=== PATIENT | female | born 1970 | race Caucasian/White ===

== ENCOUNTER 2017-07-10 14:23 | Emergency (ER) | payer SELFPAY ==
[2017-07-10 14:46] VITALS: BP 113/71
--- NOTE | 2017-07-10 15:00 | UC ---
Respiratory Complaint HPI - HPI Summary HPI Summary: 46 yo female with fever/chills/worsening wheezing and cough (productive) x 4 days no n/v no CP feels SOB on home O2 admitted 04/08 with "double pneumonia" - History of Current Complaint Chief Complaint: UCRespiratory Stated Complaint: WHEEZING,DIFFICULTY BREATHING Time Seen by Provider: 07/10/17 14:37 Hx Obtained From: Patient Onset/Duration: Sudden Onset, Lasting Days Timing: Constant Severity Initially: Mild Severity Currently: Moderate Pain Intensity: 1 Pain Scale Used: 0-10 Numeric Character: Cough: Productive Aggravating Factors: Exertion, Deep Breaths, Recumbent Position Alleviating Factors: Bronchodilator Associated Signs And Symptoms: Positive: Dyspnea, Fever, Chills, Wheezing Related History: Similar Episode/Dx as: - pneumonia/bronchitis - Allergies/Home Medications Allergies/Adverse Reactions: Allergies Allergy/AdvReac Type Severity Reaction Status Date / Time No Known Allergies Allergy Verified 07/10/17 14:31 Home Medications: Home Medications Albuterol 0.5% CONC NEB.JETT* 1 inh TID PRN 07/10/17 [History Confirmed 07/10/17] Albuterol HFA INHALER* [Ventolin HFA Inhaler*] 2 puff Q4H PRN 07/10/17 [History Confirmed 07/10/17] Budesonide/Formote 160/4.5(NF) [Symbicort 160/4.5 (NF)] 2 puff BID 07/10/17 [ History Confirmed 07/10/17] PMH/Surg Hx/FS Hx/Imm Hx Previously Healthy: Yes Respiratory History: Asthma, Bronchitis, Pneumonia - Surgical History Surgical History: Yes Surgery Procedure, Year, and Place: TUBAL LIGATION. LEFT EYE - Family History Known Family History: Positive: Hypertension, Respiratory Disease - Social History Alcohol Use: None Substance Use Type: None Smoking Status (MU): Former Smoker Length of Time of Smoking/Using Tobacco: +10 YEARS When Did the Patient Quit Smoking/Using Tobacco: MARCH 2017 - Immunization History Most Recent Influenza Vaccination: NEVER Review of Systems Constitutional: Fever, Chills Skin: Negative Eyes: Negative ENT: Negative Respiratory: Shortness Of Breath, Cough Cardiovascular: Negative Gastrointestinal: Negative Genitourinary: Negative Motor: Negative Neurovascular: Negative Musculoskeletal: Negative Neurological: Negative Psychological: Negative Is Patient Immunocompromised?: No All Other Systems Reviewed And Are Negative: Yes Physical Exam Triage Information Reviewed: Yes Appearance: Well-Appearing, No Pain Distress, Well-Nourished Vital Signs: Initial Vital Signs Temp 97.6 F 07/10/17 14:32 Pulse 89 07/10/17 14:32 Resp 20 07/10/17 14:32 BP 113/71 07/10/17 14:32 Pulse Ox 98 07/10/17 14:32 Vital Signs Reviewed: Yes Eyes: Positive: Conjunctiva Clear ENT: Positive: Hearing grossly normal. Negative: Nasal congestion, Nasal drainage, Tonsillar exudate, Trismus, Muffled/hoarse voice Neck: Positive: Supple Respiratory: Positive: No respiratory distress, No accessory muscle use, Wheezing Cardiovascular: Positive: RRR, No Murmur Musculoskeletal: Positive: ROM Intact, No Edema Neurological: Positive: Alert Psychological Exam: Normal Skin Exam: Normal UC Diagnostic Evaluation - Laboratory O2 Sat by Pulse Oximetry: 98 - not hypoxic on 2L, - Radiology Xray Interpretation: Positive (See Comments) - RML infiltrate Radiology Interpretation Completed By: Radiologist Re-Evaluation - Re-Evaluation First Eval Re-Evaluation Time: 15:35 Change: Improved - decreased wheezing Respiratory Course/Dx - Differential Dx/Diagnosis Provider Diagnoses: pneumonia. bronchospasm Discharge - Discharge Plan Condition: Stable Disposition: HOME Prescriptions: Amoxicillin/Clavulanate TAB* [Augmentin TAB 875*] 875 mg PO BID #20 tab Prednisone [Deltasone] 40 mg PO DAILY #10 tab Patient Education Materials: Bronchospasm (ED), Pneumonia (ED) Additional Instructions: see your provider in 2-5 days use your breathing meds as directed TO ER IF YOUR SYMPTOMS WORSEN
[2017-07-10] MEDS ORDERED: Albuterol 2.5 MG/3 ML NEB.SOL* (0.083%) INH ONE (15:02)
[2017-07-10] MEDS ORDERED: Ipratropium 0.5MG/2.5ML NEB* 0.5 MG/2.5 ML NEB.SOLN INH ONE (15:02)
--- NOTE | 2017-07-10 15:21 | RAD ---
INDICATION: Fever, cough and wheezing. COMPARISON: There are no prior studies available for comparison. TECHNIQUE: Dual-energy PA and lateral views of the chest were obtained. FINDINGS: The heart is within normal limits in size. Mediastinal and hilar contours appear within normal limits. There is a small infiltrate in the right middle lobe most consistent with pneumonia. No pleural effusion is seen. IMPRESSION: RIGHT MIDDLE LOBE INFILTRATE SUGGESTIVE OF PNEUMONIA.
[2017-07-10] MEDS ORDERED: Amoxicillin/Clavulanate TAB* 875 MG PO ONE (15:32)
[2017-07-10] MEDS ORDERED: predniSONE TAB* 20 MG PO ONE (15:33)
== END 2017-07-10 15:47 | disposition home or self-care (01) ==
LOC: UCCORT 14:23
DX: J18.9 Pneumonia, unspecified organism (principal); J45.909 Unspecified asthma, uncomplicated
CPT/HCPCS: 71020; 99203; A9270-GY; G0463; J7512; J7644

== ENCOUNTER 2017-11-28 16:04 | Emergency (ER) | payer MEDICARE, MEDICAID ==
[2017-11-28 16:36] VITALS: BP 103/67
--- NOTE | 2017-11-28 16:57 | UC ---
Respiratory Complaint HPI - HPI Summary HPI Summary: Known asthmatic/COPD with frequent exacerbations of asthma, using steroid pulses up to once per month. Ran out of albuterol and is using her daughters, but states that even when well she uses albuterol regularly. Exacerbations typically treated with steroid and antibiotic. Last hospitalization was about ayear ago. Does not smoke, but has smoke exposure at home. - History of Current Complaint Chief Complaint: UCRespiratory Stated Complaint: CONGESTION, WHEEZING Time Seen by Provider: 11/28/17 16:46 Hx Obtained From: Patient, Family/Prop Attendant - here with her daughter, who contributes. ?: No Onset/Duration: Gradual Onset, Lasting Days - began feeling unwell yesterday, mild sore throat, no fever. Timing: Constant Severity Initially: Moderate Severity Currently: Moderate Pain Intensity: 0 Character: Cough: Productive Alleviating Factors: Bronchodilator, Upright Position Associated Signs And Symptoms: Positive: Dyspnea, Wheezing - Risk Factors Pulmonary Embolism Risk Factors: Negative Cardiac Risk Factors: Negative Pseudomonas Risk Factors: Chronic Lung Disease Tuberculosis Risk Factors: Corticosteriod Use - Allergies/Home Medications Allergies/Adverse Reactions: Allergies Allergy/AdvReac Type Severity Reaction Status Date / Time No Known Allergies Allergy Verified 11/28/17 16:33 PMH/Surg Hx/FS Hx/Imm Hx Previously Healthy: No - disabled by COPD and back injury Respiratory History: COPD - has overnight O2, Asthma - Surgical History Surgical History: Yes Surgery Procedure, Year, and Place: TUBAL LIGATION. LEFT EYE - Family History Known Family History: Positive: Cardiac Disease - father of [place], Hypertension, Respiratory Disease, Other Family History: mother of brain tumor - Social History Occupation: Disabled Lives: With Family Alcohol Use: None Substance Use Type: None Smoking Status (MU): Former Smoker Length of Time of Smoking/Using Tobacco: +10 YEARS When Did the Patient Quit Smoking/Using Tobacco: MARCH 2017 - Immunization History Most Recent Influenza Vaccination: NEVER Review of Systems Constitutional: Fatigue Skin: Negative Eyes: Negative ENT: Sore Throat, Ear Ache Respiratory: Shortness Of Breath, Cough Cardiovascular: Negative Gastrointestinal: Negative Genitourinary: Negative Motor: Negative Neurovascular: Negative Musculoskeletal: Negative Neurological: Negative Psychological: Negative Is Patient Immunocompromised?: No All Other Systems Reviewed And Are Negative: Yes Physical Exam Triage Information Reviewed: Yes Appearance: Ill-Appearing - looks unwell, smells strongly of smoke, no respiratory distress, frequent cough, Thin Vital Signs: Initial Vital Signs Temp 98 F 11/28/17 16:31 Pulse 97 11/28/17 16:31 Resp 22 11/28/17 16:31 BP 103/67 11/28/17 16:31 Pulse Ox 97 11/28/17 16:31 Vital Signs Reviewed: Yes Eyes: Positive: Conjunctiva Clear ENT: Positive: Pharynx normal Dental Exam: Other - edentulous Neck: Positive: Supple, Nontender, No Lymphadenopathy Respiratory: Positive: Decreased breath sounds - to both bases, inspiratory and expiratory wheezes throughout., Wheezing Cardiovascular: Positive: RRR, No Murmur Abdomen Description: Positive: Nontender, No Organomegaly Neurological: Positive: Alert, Muscle Tone Normal Psychological Exam: Normal Skin Exam: Normal UC Diagnostic Evaluation - Laboratory O2 Sat by Pulse Oximetry: 97 Re-Evaluation - Re-Evaluation Second Eval Re-Evaluation Time: 17:20 - improved air entry Change: Improved Respiratory Course/Dx - Course Course Of Treatment: oral steroid, amoxicillin, albuterol renewed - Differential Dx/Diagnosis Differential Diagnosis/HQI/PQRI: Asthma, Bronchitis, Exacerbation Of COPD, Lower Resp Infection, Sinusitis Provider Diagnoses: exacerbation of COPD Discharge - Discharge Plan Condition: Stable Disposition: HOME Prescriptions: Albuterol 2.5MG/3ML (0.083%)* [Ventolin 2.5 MG/3 ML NEB.JETT*] 2.5 mg INH Q6H # 120 neb.jett Albuterol HFA INHALER* [Ventolin HFA Inhaler*] 2 puff INH Q6H PRN #1 mdi PRN Reason: Wheezing Amoxicillin PO (*) [Amoxicillin 875 MG (*)] 875 mg PO BID #20 tab predniSONE TAB* [Deltasone TAB*] 30 mg PO DAILY #33 tab Patient Education Materials: COPD (Chronic Obstructive Pulmonary Disease) (ED) Referrals: JAMESON Chauhan [Primary Care Provider] - Additional Instructions: Please schedule a follow up visit with your primary physician early next week to ensure that you are responding and to determine if you need changes in your inhalers. You have been prescribed amoxicillin as well a tapering course of prednisone. Albuterol has been renewed. Your total use of albuterol sources should not be more than 4 per day. Use oxygen at home as needed.
[2017-11-28] MEDS ORDERED: Albuterol 2.5 MG/3 ML NEB.SOL* (0.083%) INH ONE (16:58)
== END 2017-11-28 17:30 | disposition home or self-care (01) ==
LOC: UCCORT 16:04
DX: J44.1 Chronic obstructive pulmonary disease with (acute) exacerbation (principal); Z77.22 Contact with and (suspected) exposure to environmental tobacco smoke (acute) (chronic); Z87.891 Personal history of nicotine dependence
CPT/HCPCS: 99212; G0463

== ENCOUNTER 2018-07-09 09:50 | Emergency (ER) | payer MEDICARE, MEDICAID ==
[2018-07-09 10:12] VITALS: BP 128/76
[2018-07-09] MEDS ORDERED: Albuterol/Ipratropium NEB.SOL* Albuterol 2.5 MG/Ipratropium 0.5 MG 3 ML INH ONE (10:39)
--- NOTE | 2018-07-09 10:39 | UC ---
Respiratory Complaint HPI - HPI Summary HPI Summary: 47-year-old female with history of asthma and COPD presents with 3 day history of nasal congestion, nasal drainage, shortness of breath, wheezing, and a nonproductive cough. Associated with some chest tightness. She is also reporting some lower back pain after tripping over a cinder block 2 days ago. Describes pain as aching. Worsens with movement, bending, or twisting. Denies fever, chills, ear pain or drainage, sore throat, chest pain, palpitations, abdominal pain, nausea, vomiting, dysuria, frequency, urgency, hematuria, loss of bowel or bladder control, lower extremity numbness, tingling, or weakness. - History of Current Complaint Chief Complaint: UCRespiratory Stated Complaint: CONGESTION HEAD Time Seen by Provider: 07/09/18 10:03 Hx Obtained From: Patient Onset/Duration: Gradual Onset Severity Currently: Mild Pain Intensity: 3 Alleviating Factors: Bronchodilator Associated Signs And Symptoms: Positive: Dyspnea, Wheezing, URI, Nasal Congestion. Negative: Fever, Chills, Pleuritic Chest Pain, Hemoptysis, Dizziness, Calf Pain, Calf Swelling, Edema, Hoarseness, Sinus Discomfort - Allergies/Home Medications Allergies/Adverse Reactions: Allergies Allergy/AdvReac Type Severity Reaction Status Date / Time No Known Allergies Allergy Verified 07/09/18 10:03 Home Medications: Home Medications FLUoxetine CAP* [Prozac CAP*] 30 mg PO BID 07/09/18 [History Confirmed 07/09/18] PMH/Surg Hx/FS Hx/Imm Hx Respiratory History: COPD, Asthma Psychological History: Depression - Surgical History Surgical History: Yes Surgery Procedure, Year, and Place: TUBAL LIGATION. LEFT EYE - Family History Known Family History: Positive: Cardiac Disease - father of [place], Hypertension, Respiratory Disease, Other Family History: mother of brain tumor - Social History Occupation: Disabled Lives: With Family Alcohol Use: None Substance Use Type: None Smoking Status (MU): Former Smoker Length of Time of Smoking/Using Tobacco: +10 YEARS When Did the Patient Quit Smoking/Using Tobacco: MARCH 2017 - Immunization History Most Recent Influenza Vaccination: NEVER Review of Systems Constitutional: Negative Skin: Negative Eyes: Negative ENT: Nasal Discharge, Sinus Congestion Respiratory: Shortness Of Breath, Cough, Other - wheezing Cardiovascular: Negative Gastrointestinal: Negative Genitourinary: Negative Motor: Negative Neurovascular: Negative Musculoskeletal: Other: - Low back pain Is Patient Immunocompromised?: No All Other Systems Reviewed And Are Negative: Yes Physical Exam Triage Information Reviewed: Yes Appearance: Well-Appearing, No Pain Distress, Well-Nourished Vital Signs: Initial Vital Signs Temp 98.4 F 07/09/18 10:05 Pulse 70 07/09/18 10:05 Resp 14 07/09/18 10:05 BP 128/76 07/09/18 10:05 Pulse Ox 98 07/09/18 10:05 Eyes: Positive: Conjunctiva Clear. Negative: Discharge ENT: Positive: Nasal congestion, Nasal drainage, TMs normal, Uvula midline. Negative: Pharyngeal erythema, Tonsillar swelling, Tonsillar exudate, Sinus tenderness Neck: Positive: Supple, Nontender, No Lymphadenopathy Respiratory: Positive: No respiratory distress, Decreased breath sounds, Wheezing - Diffuse bilateral wheezing Cardiovascular: Positive: RRR, No Murmur Musculoskeletal: Positive: Strength Intact, ROM Intact, Other: - Mild paraspinous lumbar back tenderness. Neurological: Positive: Alert, Other: - Sensation intact distally Skin Exam: Normal UC Diagnostic Evaluation - Laboratory O2 Sat by Pulse Oximetry: 98 Re-Evaluation - Re-Evaluation First Eval Re-Evaluation Time: 11:05 Change: Improved Comment: Post nebulizer treatment patient states breathing has improved. She continues to have bilateral diffuse wheezing however air exchange is improved. Respiratory Course/Dx - Course Course Of Treatment: 47 year old female with COPD presents with 3 day history of nasal congestion, nasal drainage, shortness of breath, wheezing, chest tightness, and nonproductive cough. Her exam was consistent with an acute URI with COPD exacerbation. She was given a DuoNeb treatment in the clinic with some improvement in her breathing however she continued to have diffuse wheezing bilaterally. I will start her on a 10 day course of Augmentin, prednisone taper, and have her follow up with her PCP within 5 days for recheck of symptoms. Warning symptoms were reviewed with patient. Verbalizes understanding and agrees with POC. - Differential Dx/Diagnosis Provider Diagnoses: Acute bronchitis with COPD exacerbation, low back pain Discharge - Sign-Out/Discharge Documenting (check all that apply): Patient Departure All imaging exams completed and their final reports reviewed: No Studies - Discharge Plan Condition: Stable Disposition: HOME Prescriptions: Amoxicillin/Potassium Clav [Amox-Clav 250-125 mg Tablet] 1 each PO BID #20 tablet predniSONE [Deltasone 20 MG TAB] 40 mg PO DAILY #10 tablet Patient Education Materials: Acute Bronchitis (ED), COPD (Chronic Obstructive Pulmonary Disease) (ED), Acute Low Back Pain (ED) Referrals: No Primary Care Phys,NOPCP [Primary Care Provider] - Additional Instructions: You been given a prescription for Augmentin to treat you for your bronchitis. Take one tablet twice a day for 10 days. Take this with food to avoid upset stomach. Be sure to complete the entire course of the prescription even if you' re feeling better. Start prednisone taper today. Take 4 tablets once daily for 3 days, then 3 tablets once daily for 3 days, then 2 tablets once daily for 3 days, then 1 tablet daily for 3 days, then stop. Continue to use your inhalers as prescribed. Follow-up with your primary care provider within the next 5 days to be rechecked. Seek immediate medical attention in the emergency room if you develop fever greater than 100.5 F, have chest pain, worsening shortness of breath, persistent wheezing despite using your albuterol inhaler, or any worsening of symptoms. - Billing Disposition and Condition Condition: STABLE Disposition: Home - Attestation Statements Provider Attestation: I was available for consult. This patient was seen by the ALISE. The patient was not presented to, seen by, or examined by me. -Dave
== END 2018-07-09 11:23 | disposition home or self-care (01) ==
LOC: UCCORT 09:50
DX: J20.9 Acute bronchitis, unspecified (principal); J44.0 Chronic obstructive pulmonary disease with (acute) lower respiratory infection; J44.1 Chronic obstructive pulmonary disease with (acute) exacerbation; M54.5 Low back pain; F32.9 Major depressive disorder, single episode, unspecified; Z87.891 Personal history of nicotine dependence
CPT/HCPCS: 99213; A9270-GY; G0463

== ENCOUNTER 2018-11-01 14:04 | Emergency (ER) | payer MEDICARE, MEDICAID ==
--- OUTSIDE RECORDS SUMMARY | 2018-11-01 14:17 | XMS REPORT | Continuity of Care Document ---
:1970 External Reference #:[id number] Author Name Tony Cherie Care Team Providers Name Role Phone Yue Jimenez FNP Care Team Information Microarray Specialist Unavailable Yue Jimenez FNP Primary Care Physician Unavailable Payers Type Date Identification Numbers Payment Provider Subscriber Policy Number: [id number] Medicare Cathie Clink PayID: [id number] [address] [place] [address] Policy Number: [id number] [facility] Cathie Clink PayID: [id number] [address] [place] [address] Advance Directives Description No Information Available Problems Description No Information Family History Date Family Member(s) Problem(s) Comments Father Heart Attack : (age 70 Years) Father due to Stroke : (age 64 Years) Mother due to Stroke : (age 60 Years) Paternal Grandfather due to Rote : (age 64 Years) Paternal Grandmother due to Unknown Causes : (age 50 Years) Maternal Grandfather due to Heart Attack : (age 47 Years) Maternal Grandmother due to Stroke Social History Type Date Description Comments Sex Unknown Marital Status Occupation Unemployed ETOH Use Currently consumes alcohol socially Tobacco Use Start: Unknown Patient is a current smokes 1/2 to 1 ppd smoker, smokes every x many years but day has quit on and off during that time Recreational Drug Use Denies Drug Use Smoking Status Reviewed: 10/20/18 Patient is a current smokes 1/2 to 1 ppd smoker, smokes every x many years but day has quit on and off during that time Exercise Type/Frequency Exercises regularly Allergies, Adverse Reactions, Alerts Description No Known Drug Allergies Medications Medication Date Status Form Strength Qnty SIG Indications Ordering Provider Tylenol Active Tablets 325mg 1 tab by Unknown 000 mouth up to 6x a day Paroxetine Active Tablets 10mg 1 by mouth Unknown HCL 000 every day Symbicort Active Aerosol 160-4.5mcg/ inhale two Unknown 000 Act puffs by mouth twice a day Ventolin HFA Active Aerosol 108(90Base) take 2 puffs Unknown 000 mcg/Act every 6 hours as needed for shortness of breath. Immunizations Description No Information Available Vital Signs Description No Information Available Results Description No Information Available Procedures Date Code Description Status 10/20/2018 64919 Eye Exam New Patient Comprehensive Completed 09/23/2017 [id number] Mammogram Completed Encounters Description No Information Available Plan of Treatment Future Appointment(s):10/22/2019 2:00 pm - Shahid Patel MD at [email or web address]/ 28/2019 - Shahid Patel [id number] Refractive amblyopia, left eyeComments:- appears to have refractive and strabismus component- provided updated rx for glasses- s/p strabismus surgery as a child; consecutive xt; not bothersome; no diplopia; ok to followFollow up:1 year exam
[2018-11-01 15:15] VITALS: BP 122/65
[2018-11-01] MEDS ORDERED: Albuterol 2.5 MG/3 ML NEB.SOL* (0.083%) INH ONE (15:31)
[2018-11-01] MEDS ORDERED: predniSONE TAB* 20 MG PO ONE (15:32)
--- NOTE | 2018-11-01 15:34 | UC ---
UC General HPI - HPI Summary HPI Summary: 2 week hx of worsening cough with congestion and sob. + subjective fever. + hx COPD. No CP. - History of Current Complaint Chief Complaint: UCRespiratory Stated Complaint: DIFFICULTY BREATHING Time Seen by Provider: 11/01/18 15:29 Hx Obtained From: Patient Onset/Duration: Gradual Onset Timing: Constant Pain Intensity: 0 Associated Signs & Symptoms: Positive: Cough, Fever, SOB, Wheezing. Negative: Chest Pain - Allergy/Home Medications Allergies/Adverse Reactions: Allergies Allergy/AdvReac Type Severity Reaction Status Date / Time No Known Allergies Allergy Verified 11/01/18 15:15 PMH/Surg Hx/FS Hx/Imm Hx Respiratory History: COPD - Surgical History Surgical History: Yes Surgery Procedure, Year, and Place: TUBAL LIGATION. LEFT EYE - Family History Known Family History: Positive: Cardiac Disease - father of [place], Hypertension, Respiratory Disease, Other Family History: mother of brain tumor - Social History Alcohol Use: None Substance Use Type: None Smoking Status (MU): Former Smoker Length of Time of Smoking/Using Tobacco: +10 YEARS When Did the Patient Quit Smoking/Using Tobacco: MARCH 2017 - Immunization History Most Recent Influenza Vaccination: NEVER Review of Systems All Other Systems Reviewed And Are Negative: Yes Constitutional: Positive: Fever, Chills Skin: Positive: Negative Eyes: Positive: Negative ENT: Positive: Negative Respiratory: Positive: Shortness Of Breath, Cough Cardiovascular: Positive: Negative Gastrointestinal: Positive: Negative Genitourinary: Positive: Negative Motor: Positive: Negative Neurovascular: Positive: Negative Musculoskeletal: Positive: Negative Neurological: Positive: Negative Psychological: Positive: Negative Physical Exam Triage Information Reviewed: Yes Appearance: Well-Appearing Vital Signs: Initial Vital Signs Temp 97.7 F 11/01/18 15:11 Pulse 89 11/01/18 15:11 Resp 22 11/01/18 15:11 BP 122/65 11/01/18 15:11 Pulse Ox 97 11/01/18 15:11 Vital Signs Reviewed: Yes Eyes: Positive: Conjunctiva Clear ENT: Positive: Pharynx normal, TMs normal. Negative: Nasal congestion, Nasal drainage Neck: Positive: Supple, Nontender, No Lymphadenopathy Respiratory: Positive: No respiratory distress, Decreased breath sounds, Rhonchi , Wheezing, Other: - cough is congested Cardiovascular: Positive: RRR, No Murmur Abdomen Description: Positive: Nontender, No Organomegaly, Soft Bowel Sounds: Positive: Present Musculoskeletal: Positive: No Edema Neurological: Positive: Alert Psychological: Positive: Age Appropriate Behavior Skin Exam: Normal Diagnostics - Radiology No standard instances Radiology Interpretation Completed By: Radiologist - CXR=NAD Course/Dx - Differential Dx - Multi-Symptom Differential Diagnoses: Other - COPD, BRONCHITIS, PNEUMONIA - Diagnoses Provider Diagnosis: COPD exacerbation Discharge - Sign-Out/Discharge Documenting (check all that apply): Patient Departure All imaging exams completed and their final reports reviewed: Yes - Discharge Plan Condition: Stable Disposition: HOME Prescriptions: Albuterol 2.5MG/3ML (0.083%)* [Ventolin 2.5 MG/3 ML NEB.JETT*] 2.5 mg INH Q6H PRN #1 box PRN Reason: Sob/Wheezing Albuterol HFA INHALER* [Ventolin HFA Inhaler*] 2 puff INH Q6H #1 mdi DOXYcycline CAP(*) [DOXYcycline 100MG CAP(*)] 100 mg PO BID 10 Days #20 cap predniSONE [Prednisone 20 MG TAB] 40 mg PO DAILY 5 Days #10 tablet Patient Education Materials: COPD (Chronic Obstructive Pulmonary Disease) (ED) Referrals: Juan Morris MD [Primary Care Provider] - 5 Days Additional Instructions: USE THE NEBULIZER OR THE INHALE BUT NOT BOTH AT THE SAME TIME - Billing Disposition and Condition Condition: STABLE Disposition: Home
== END 2018-11-01 16:35 | disposition home or self-care (01) ==
LOC: UCCORT 14:04
DX: J44.1 Chronic obstructive pulmonary disease with (acute) exacerbation (principal); R09.81 Nasal congestion; Z87.891 Personal history of nicotine dependence
CPT/HCPCS: 71046; 99212; G0463; J7512